=== PATIENT | male | born 1940 | race Caucasian/White ===

== ENCOUNTER 2018-03-04 16:26 | Inpatient (IN) | payer OTHER ==
[2018-03-04 16:46] LABS: ADD MAN DIFF? NO
[2018-03-04 16:49] LABS: ABNORMAL IP MESSAGE 1; BASOPHIL # 0.1 10^3/ul (0.0-0.1); BASOPHILS % 0.4 % (0.0-2.0); EOSINOPHILS # 0.2 10^3/ul (0.0-0.5); EOSINOPHILS % 1.3 % (0.0-7.0); HEMATOCRIT 43.8 % (42.0-52.0); HEMOGLOBIN 14.8 g/dl (14.0-18.0); IMMATURE GRANS #M 0.12 10^3/ul; IMMATURE GRANS % (M) 0.7 %; LYMPHOCYTES # 7.3 10^3/ul (0.8-2.9); LYMPHOCYTES % 44.6 % (15.0-51.0); MEAN CORPUSCULAR HGB CONC 33.8 g/dl (32.0-37.0); MEAN CORPUSCULAR VOLUME 91.6 fl (82.0-101.0); MEAN PLATELET VOLUME 11.6 fl (7.4-10.4); MONOCYTE # 1.4 10^3/ul (0.3-0.9); MONOCYTES % 8.7 % (0.0-11.0); NEUTROPHIL # 7.2 10^3/ul (1.6-7.5); NEUTROPHILS % 44.3 % (39.0-77.0); PLATELET COUNT 228 10^3/UL (140-415); POSITIVE DIFF @See below; RED BLOOD COUNT 4.78 10^6/ul (4.70-6.10)
[2018-03-04 16:49] LABS: WHITE BLOOD COUNT 16.4 10^3/ul (4.8-10.8)
[2018-03-04] MEDS: SODIUM CHLORIDE 0.9% 1L BAG IV* (16:59)
[2018-03-04] MEDS: CEFEPIME 2GM/50 ML (PMX) 50 ML IVPB (16:59)
[2018-03-04 17:05] LABS: ALANINE AMINOTRANSFERASE 16 IU/L (13-69); ALBUMIN 4.3 g/dl (3.3-4.9); ALBUMIN/GLOBULIN RATIO 1.34; ALKALINE PHOSPHATASE 62 IU/L (42-121); ANION GAP 25 (8-16); ASPARTATE AMINO TRANSFERASE 28 IU/L (15-46); BILIRUBIN,INDIRECT 0.3 mg/dl (0-1.1); BILIRUBIN,TOTAL 0.3 mg/dl (0.2-1.3); BLOOD UREA NITROGEN 14 mg/dl (7-20); CARBON DIOXIDE 17 mmol/L (21-31); CHLORIDE 106 mmol/L (97-110); CREATINE KINASE 130 IU/L (23-200); CREATININE 1.16 mg/dl (0.61-1.24); GLUCOSE 84 mg/dl (70-220); POTASSIUM 3.9 mmol/L (3.5-5.1); SODIUM 144 mmol/L (135-144); TOTAL PROTEIN 7.5 g/dl (6.1-8.1)
[2018-03-04 17:10] LABS: INR 0.93; PROTIME 12.6 Sec (11.9-14.9)
[2018-03-04 17:11] LABS: PARTIAL THROMBOPLASTIN TIME 21.6 Sec (25.0-35.0)
[2018-03-04 17:17] LABS: B-TYPE NATRIURETIC PEPTIDE 101 PG/ML (0-450); CK INDEX 0.9; TROPONIN-I < 0.010 ng/ml (0.000-0.120)
[2018-03-04 18:01] LABS: LACTIC ACID 5.2 mmol/L (0.5-2.0)
[2018-03-04] MEDS: SOD CHLORIDE 0.9% 100 ML (18:13)
[2018-03-04] MEDS: IODIXANOL LOCM 100 ML BTL (18:13)
[2018-03-04] MEDS: VANCOMYCIN 1 GM (PMX) 250 ML IVPB (18:30)
[2018-03-04 18:38] LABS: ADD UMIC YES; UR ASCORBIC ACID NEGATIVE (NEGATIVE); UR BILIRUBIN (Dip) NEGATIVE (NEGATIVE); UR BLOOD (Dip) 2+ mg/dL (NEGATIVE); UR CLARITY CLEAR (CLEAR); UR COLOR YELLOW (YELLOW); UR GLUCOSE (Dip) NEGATIVE (NEGATIVE); UR KETONES (Dip) NEGATIVE (NEGATIVE); UR LEUKOCYTE ESTERASE (Dip) NEGATIVE Leu/ul (NEGATIVE); UR NITRITE (Dip) NEGATIVE (NEGATIVE); UR RBC 6 /HPF (0-5); UR SPECIFIC GRAVITY (Dip) 1.029 (1.003-1.030); UR TOTAL PROTEIN (Dip) 1+ mg/dl (NEGATIVE); UR UROBILINOGEN (Dip) NEGATIVE (NEGATIVE); UR WBC 5 /HPF (0-5)
[2018-03-04] MEDS ORDERED: ACETAMINOPHEN 325 MG TAB PO (19:30)
[2018-03-04] MEDS ORDERED: ONDANSETRON 4 MG INJ IV (19:30)
[2018-03-04 21:24] LABS: LACTIC ACID 0.7 mmol/L (0.5-2.0)
[2018-03-05] MEDS ORDERED: ONDANSETRON 4 MG INJ IV
[2018-03-05] MEDS ORDERED: ACETAMINOPHEN 325 MG TAB PO
[2018-03-05 01:22] LABS: CREATINE KINASE 482 IU/L (23-200)
[2018-03-05 01:34] LABS: CK INDEX 0.5; CK-MB 2.41 ng/ml (0.0-2.4); TROPONIN-I 0.034 ng/ml (0.000-0.120)
[2018-03-05] MEDS: ACCU-CHEK XX (02:00)
[2018-03-05] MEDS: ZOLPIDEM 5 MG TAB PO (03:14)
[2018-03-05 06:07] LABS: ADD MAN DIFF? NO
[2018-03-05 06:20] LABS: WHITE BLOOD COUNT 8.5 10^3/ul (4.8-10.8)
[2018-03-05 06:20] LABS: BASOPHILS % 0.4 % (0.0-2.0); EOSINOPHILS # 0.1 10^3/ul (0.0-0.5); EOSINOPHILS % 0.7 % (0.0-7.0); HEMATOCRIT 38.6 % (42.0-52.0); HEMOGLOBIN 12.8 g/dl (14.0-18.0); IMMATURE GRANS #M 0.03 10^3/ul; IMMATURE GRANS % (M) 0.4 %; LYMPHOCYTES # 1.7 10^3/ul (0.8-2.9); LYMPHOCYTES % 19.5 % (15.0-51.0); MEAN CORPUSCULAR HGB CONC 33.2 g/dl (32.0-37.0); MEAN CORPUSCULAR VOLUME 90.4 fl (82.0-101.0); MEAN PLATELET VOLUME 11.6 fl (7.4-10.4); MONOCYTES % 12.2 % (0.0-11.0); NEUTROPHIL # 5.7 10^3/ul (1.6-7.5); NEUTROPHILS % 66.8 % (39.0-77.0); PLATELET COUNT 144 10^3/UL (140-415); RED BLOOD COUNT 4.27 10^6/ul (4.70-6.10); RED CELL DISTRIBUTION WIDTH 13.2 % (11.5-14.5)
[2018-03-05 06:45] LABS: ALANINE AMINOTRANSFERASE 22 IU/L (13-69); ALBUMIN 3.3 g/dl (3.3-4.9); ALBUMIN/GLOBULIN RATIO 1.26; ALKALINE PHOSPHATASE 55 IU/L (42-121); ANION GAP 14 (8-16); ASPARTATE AMINO TRANSFERASE 29 IU/L (15-46); BILIRUBIN,INDIRECT 0.4 mg/dl (0-1.1); BILIRUBIN,TOTAL 0.4 mg/dl (0.2-1.3); BLOOD UREA NITROGEN 11 mg/dl (7-20); CALCIUM 7.9 mg/dl (8.4-10.2); CARBON DIOXIDE 23 mmol/L (21-31); CHLORIDE 109 mmol/L (97-110); CHOL/HDL RATIO 2.7 RATIO; CHOLESTEROL 68 mg/dl (100-200); CREATININE 0.85 mg/dl (0.61-1.24); GLUCOSE 98 mg/dl (70-220); HDL CHOLESTEROL 25 mg/dl (31-75); LDL CHOLESTEROL,CALCULATED 24 mg/dl; PHOSPHORUS 3.3 mg/dl (2.5-4.9); POTASSIUM 3.7 mmol/L (3.5-5.1); SODIUM 142 mmol/L (135-144); TOTAL PROTEIN 5.9 g/dl (6.1-8.1); TRIGLYCERIDES 96 mg/dl (0-149)
[2018-03-05 06:46] LABS: CREATINE KINASE 843 IU/L (23-200)
[2018-03-05 06:51] LABS: HEMOGLOBIN A1C 6.6 % (0-5.9)
[2018-03-05 06:53] LABS: CK INDEX 0.3; CK-MB 2.94 ng/ml (0.0-2.4); TROPONIN-I 0.038 ng/ml (0.000-0.120)
[2018-03-05 07:47] LABS: THYROID STIMULATING HORMONE 0.735 MIU/L (0.465-4.680)
[2018-03-05] MEDS: INSULIN ASPART [NOVOLOG] 3 ML PEN SC ×4 (07:47→22:02)
[2018-03-05] MEDS: HEPARIN 5,000 UNIT/0.5 ML VIAL SC ×2 (08:23→22:01)
[2018-03-05] MEDS: MAGNESIUM SULFATE 4 GM/100 ML 100 ML IVPB (14:29)
[2018-03-05] MEDS ORDERED: INSULIN GLARGINE [LANTus] (100 UNITS/ML) SYG SC (20:00)
[2018-03-05 21:07] LABS: ANION GAP 14 (8-16); BLOOD UREA NITROGEN 12 mg/dl (7-20); CALCIUM 8.2 mg/dl (8.4-10.2); CARBON DIOXIDE 22 mmol/L (21-31); CHLORIDE 106 mmol/L (97-110); CREATININE 0.85 mg/dl (0.61-1.24); GLUCOSE 217 mg/dl (70-220); MAGNESIUM 2.3 mg/dl (1.7-2.5); POTASSIUM 4.1 mmol/L (3.5-5.1); SODIUM 138 mmol/L (135-144)
[2018-03-05] MEDS: INSULIN GLARGINE [LANTus] (100 UNITS/ML) SYG SC (22:01)
[2018-03-05] MEDS: FUROSEMIDE 20 MG TAB PO (23:43)
[2018-03-06] MEDS: ACCU-CHEK XX (02:30)
[2018-03-06 06:03] LABS: ANION GAP 14 (8-16); BLOOD UREA NITROGEN 8 mg/dl (7-20); CALCIUM 7.9 mg/dl (8.4-10.2); CARBON DIOXIDE 23 mmol/L (21-31); CHLORIDE 106 mmol/L (97-110); CREATININE 0.77 mg/dl (0.61-1.24); GLUCOSE 153 mg/dl (70-220); POTASSIUM 3.9 mmol/L (3.5-5.1); SODIUM 139 mmol/L (135-144)
[2018-03-06 06:04] LABS: CREATINE KINASE 604 IU/L (23-200)
[2018-03-06 06:08] LABS: MAGNESIUM 1.9 mg/dl (1.7-2.5)
[2018-03-06 06:12] LABS: CK INDEX 0.4
[2018-03-06 06:18] LABS: TROPONIN-I 0.021 ng/ml (0.000-0.120)
[2018-03-06] MEDS: INSULIN ASPART [NOVOLOG] 3 ML PEN SC ×2 (07:59→11:51)
[2018-03-06] MEDS: AMLODIPINE 10 MG TAB PO (08:19)
[2018-03-06] MEDS: METOPROLOL 100 MG TAB PO (08:19)
[2018-03-06] MEDS: FUROSEMIDE 20 MG TAB PO (08:20)
[2018-03-06] MEDS: HEPARIN 5,000 UNIT/0.5 ML VIAL SC (08:21)
== END 2018-03-06 16:00 | disposition home or self-care (01) | DRG 639 ==
LOC: E/R 16:26 → 6WM 19:07
PROVIDERS: Internal Medicine
DX: E11.649 Type 2 diabetes mellitus with hypoglycemia without coma (principal); I25.10 Atherosclerotic heart disease of native coronary artery without angina pectoris; I10 Essential (primary) hypertension; E78.5 Hyperlipidemia, unspecified; N40.0 Benign prostatic hyperplasia without lower urinary tract symptoms; Z79.84 Long term (current) use of oral hypoglycemic drugs
CPT/HCPCS: 36415; 70450; 71045; 71275; 80048; 80053; 80061; 81001; 82550; 82553; 82962; 83036; 83605; 83735; 83880; 84100; 84443; 84484; 85025; 85378; 85610; 85730; 87040; 87086; 93005; 93306; 93308; 93880; 96374; 96375; 97161; 99291-25